=== PATIENT | male | born 1960 | race Caucasian/White ===

== ENCOUNTER → 2016-08-14 | Outpatient (CLI) | payer BC, MEDICARE ==
--- NOTE | 2016-08-14 15:32 | US ---
EXAMINATION TYPE: US kidneys/renal and bladder DATE OF EXAM: 08/14/2016 3:23 PM COMPARISON: NONE CLINICAL HISTORY: R30.0 Dysuria. Right flank pain per patient EXAM MEASUREMENTS: Right Kidney: 10.7 x 5.1 x 4.5 cm Left Kidney: 13.1 x 6.7 x 6.8 cm TECHNOLOGIST IMPRESSION: Right Kidney: No hydronephrosis or masses seen, difficult to image, best seen posteriorly Left Kidney: moderate hydro Bladder: not well distended IMPRESSION: MODERATE LEFT-SIDED HYDRONEPHROSIS.
== END | disposition home or self-care (01) ==
LOC: RADUSWWP 15:03
PROVIDERS: ATTEND Internal Medicine
DX: N13.30 Unspecified hydronephrosis (principal)
CPT/HCPCS: 76770

== ENCOUNTER → 2016-09-02 | Outpatient (CLI) | payer MEDICARE ==
--- NOTE | 2016-09-02 16:15 | CT ---
EXAMINATION TYPE: CT abdomen pelvis wo/w con DATE OF EXAM: 09/02/2016 3:25 PM COMPARISON: Prior CT February HISTORY: RIght lower Quadrant pain for 1-[address] DLP: 1408.5 mGycm Automated exposure control for dose reduction was used. TECHNIQUE: Helical acquisition of images was performed from the lung bases through the pelvis. CONTRAST: Performed with Oral Contrast and with IV Contrast, patient injected with 100 mL of Omnipaque 300. FINDINGS: LUNG BASES: No significant abnormality is appreciated. Aortic root is borderline dilated at 4.1 cm. LIVER/GB: The liver shows low attenuation possibly due to fatty infiltration, gallbladder are unremar kable PANCREAS: No significant abnormality is seen. SPLEEN: No significant abnormality is seen. ADRENALS: No significant abnormality is seen. KIDNEYS: The large parapelvic cyst again noted within the left kidney and there is some hydronephros is as noted on prior. There may be some associated ureteropelvic junction stenosis. The fluid density has progressed in the interval seen in the renal pelvis and extending to the renal hilum and now ray sures 6.8 cm in transverse dimension by 6.3 cm and anterior to posterior dimension. No ureteral calcu pretty evident. RETROPERITONEAL ADENOPATHY: None visualized REPRODUCTIVE ORGANS: Prostate is enlarged and shows associated calcification URINARY BLADDER: No significant abnormality is seen. PELVIC ADENOPATHY: None visualized. OSSEOUS STRUCTURES: Degenerative disc change at the lumbosacral junction. BOWEL: Patient is post appendectomy. There are some small bowel loops which show some wall thickenin g, correlate for possible enteritis. There is no bowel obstruction. OTHER: Aorta is not dilated. IMPRESSION: URETEROPELVIC JUNCTION STENOSIS IS THOUGHT TO HAVE SHOWN SOME PROGRESSION IN HYDRONEPHROSIS. THERE IS ASSOCIATED PARAPELVIC CYSTS. ADDITIONAL FINDINGS ABOVE.
== END ==
LOC: RADCTMAIN 14:34
PROVIDERS: ATTEND Urology
DX: N13.30 Unspecified hydronephrosis (principal)
CPT/HCPCS: 74178; Q9967

== ENCOUNTER → 2016-10-16 | Outpatient (CLI) | payer MEDICARE ==
[~2016-10-16] MED LIST: FUROSEMIDE 10 MG/ML 2 ML VIAL IVP NR
--- NOTE | 2016-10-16 08:47 | NM ---
EXAMINATION TYPE: NM renal flow and function DATE OF EXAM: 10/16/2016 7:56 AM COMPARISON: CT 09/02/2016 HISTORY: Cyst on kidney Following administration of 10.82 mCi Tc99m MAG3. Immediate images post injection FINDINGS: Split renal function is 49% on the left 51% on the right. There appears be normal perfusion of the kidneys bilaterally. Right kidney demonstrates normal uptake and excretion on time activity curve. Left kidney demonstrates the upper limits of normal uptake with slightly delayed excretion. Mild prominence of the left collecting system. IMPRESSION: Mild left hydronephrosis. Perfusion is normal. Both kidneys with symmetric split function activity. T here is slightly delayed excretion of contrast from the left kidney as noted by time activity curve.
== END | disposition home or self-care (01) ==
LOC: RADNMMAIN 06:48
PROVIDERS: ATTEND Urology
DX: N13.30 Unspecified hydronephrosis (principal); N28.1 Cyst of kidney, acquired
CPT/HCPCS: 78707; A9562; J1940

== ENCOUNTER → 2017-11-25 | Outpatient (CLI) | payer MEDICARE ==
[~2017-11-25] MED LIST changes: +FUROSEMIDE 10 MG/ML 2 ML VIAL IV NR; -FUROSEMIDE 10 MG/ML 2 ML VIAL IVP NR
--- NOTE | 2017-11-25 15:52 | NM ---
EXAMINATION TYPE: NM lasix renogram DATE OF EXAM: 11/25/2017 COMPARISON: 10/16/2016 HISTORY: Left hydronephrosis Following administration of 10.7 mCi Tc 99m MAG3 with 20mg Lasix. Immediate images post injection FINDINGS: Left: 44.8 %. Right: 55.2 %. Max renal flow left: 14 minutes. Max renal flow right: 55.2 minutes. Satisfactory perfusion which appears symmetric bilaterally. There is reduced uptake and excretion on the left relative to the right kidney. T 1/2 left: 11 minutes post left kidney T max minutes minutes. T 1/2 right: 6 minutes post right kidney T max minutes minutes. IMPRESSION: Left hydronephrosis with left kidney demonstrate normal flow but reduced uptake and excretion compare d to the right kidney. Split renal function as noted above.
== END | disposition home or self-care (01) ==
LOC: RADNMMAIN 13:54
PROVIDERS: ATTEND Urology
DX: N13.30 Unspecified hydronephrosis (principal)
CPT/HCPCS: 78708; A9562